=== PATIENT | female | born 1960 | race Caucasian/White ===

== ENCOUNTER → 2016-05-02 | Outpatient (CLI) | payer OTHER ==
--- NOTE | 2016-05-02 16:37 | MAMMOGRAPHY REPORT ---
BILATERAL DIGITAL SCREENING MAMMOGRAM TOMOSYNTHESIS WITH CAD: 05/02/2016 CLINICAL HISTORY: Routine screening examination. TECHNIQUE: Breast tomosynthesis in addition to standard 2D mammography was performed. Current study was also evaluated with a Computer Aided Detection (CAD) system. COMPARISON: Comparison is made to exam dated: 04/09/2015 mammogram - [facility]. BREAST COMPOSITION: There are scattered areas of fibroglandular density in both breasts. FINDINGS: No suspicious mass, architectural distortion or cluster of microcalcifications is seen. IMPRESSION: ACR BI-RADS CATEGORY 1: NEGATIVE There is no mammographic evidence of malignancy. A 1 year screening mammogram is recommended. The p atient will receive written notification of the results. Approximately 10% of breast cancers are not detected with mammography. A negative mammographic repor t should not delay biopsy if a clinically suggestive mass is present. Jana navarrete/rabia:05/02/2016 15:50:58 Chief Wellness Officer: Barbara SANTOS(Lorelei)(Brisa), [facility] letter sent: Normal 1/2 BI-RADS Code: ACR BI-RADS Category 1: Negative
== END | disposition home or self-care (01) ==
LOC: C.MAMM 09:13
PROVIDERS: ATTEND Obstetrics & Gynecology
DX: Z12.31 Encounter for screening mammogram for malignant neoplasm of breast (principal)

== ENCOUNTER → 2017-05-03 | Outpatient (CLI) | payer OTHER ==
--- NOTE | 2017-05-04 15:06 | MAMMOGRAPHY REPORT ---
BILATERAL DIGITAL SCREENING MAMMOGRAM TOMOSYNTHESIS WITH CAD: 05/03/2017 CLINICAL HISTORY: Routine screening. Patient has no complaints. TECHNIQUE: Breast tomosynthesis in addition to standard 2D mammography was performed. Current study was also evaluated with a Computer Aided Detection (CAD) system. COMPARISON: Comparison is made to exams dated: 05/02/2016 mammogram and 04/09/2015 mammogram - [facility]. BREAST COMPOSITION: There are scattered areas of fibroglandular density in both breasts. FINDINGS: There is a lobulated 7 mm mass within the right upper inner quadrant, best seen on the stacie synthesis images, for which ultrasound and possible additional spot compression views are recommended for further evaluation. The remainder of both breasts are stable compared to prior exams, without s uspicious masses, calcifications, or areas of architectural distortion noted. IMPRESSION: ACR BI-RADS CATEGORY 0: INCOMPLETE EVALUATION: NEED ADDITIONAL IMAGING EVALUATION Right breast mass, for which additional imaging evaluation is recommended. The patient will be mcdermott d to schedule an appointment. Approximately 10% of breast cancers are not detected with mammography. A negative mammographic report should not delay biopsy if a clinically suggestive mass is present. Najma Quan M.D. ah/:05/03/2017 16:24:59 Cake Former: Barbara SANTOS(Lorelei)(Brisa), [facility] letter sent: Addl Imaging 0 BI-RADS Code: ACR BI-RADS Category 0: Incomplete Evaluation: Need Additional Imaging Evaluation
== END | disposition home or self-care (01) ==
LOC: C.MAMM 09:16
PROVIDERS: ATTEND Obstetrics & Gynecology
DX: Z12.31 Encounter for screening mammogram for malignant neoplasm of breast (principal); N63.12 Unspecified lump in the right breast, upper inner quadrant

== ENCOUNTER → 2017-05-09 | Outpatient (CLI) | payer OTHER ==
--- NOTE | 2017-05-09 15:10 | MAMMOGRAPHY REPORT ---
UNILATERAL RIGHT DIGITAL DIAGNOSTIC MAMMOGRAM TOMOSYNTHESIS AND TARGETED RIGHT ULTRASOUND: 05/09/2017 CLINICAL HISTORY: Callback from screening mammogram for right breast mass. TECHNIQUE: Breast tomosynthesis in addition to standard 2D mammography was performed. Spot compress ion right CC and MLO 2-D and tomosynthesis images were obtained. COMPARISON: Comparison is made to exams dated: 05/03/2017 mammogram, 05/02/2016 mammogram, and 015 mammogram - [facility]. BREAST COMPOSITION: There are scattered areas of fibroglandular density in the right breast. FINDINGS: Spot compression views demonstrate a persistent low-density lobulated circumscribed 7 mm m ass within the right upper inner quadrant at approximately 1:00, best seen on the tomosynthesis image s. When compared to prior exams, the mass does not appear significantly changed in size on the MLO t omosynthesis images from the 2017 exam, however, it was not clearly seen on exams prior to 2017 altho ugh it is difficult to make an accurate comparison as these older priors were only 2-D images. Targeted ultrasound was performed of the right upper inner quadrant of the region of the mammographic mass. Sonographically normal tissue is seen in this region, without evidence of a mass or other kadi picious sonographic abnormality evident. No clear sonographic correlate for the mammographic mass is seen. IMPRESSION: ACR-BI-RADS CATEGORY 3: PROBABLY BENIGN, TARGETED ULTRASOUND ACR-BI-RADS CATEGORY 3: PRO BABLY BENIGN Low-density circumscribed 7 mm mass in the right upper inner quadrant mammographically, with no clear sonographic correlate evident. The mass is probably benign and may represent an intramammary lymph node or sonographically occult cyst. Recommend follow-up diagnostic tomosynthesis mammograms and pos sible ultrasound of the right breast in 6 months to reevaluate. The patient has been verbally notified of the results. Approximately 10% of breast cancers are not detected with mammography. A negative mammographic report should not delay biopsy if a clinically suggestive mass is present. Najma Quan M.D. /:05/09/2017 13:17:19 Robotic Weld Technician: Carlos ALVARENGA)(Brisa), [facility] letter sent: Follow Up Recommended 3 BI-RADS Code: ACR-BI-RADS Category 3: Probably Benign Ultrasound BI-RADS: ACR-BI-RADS Category 3: Pr obably Benign
== END | disposition home or self-care (01) ==
LOC: C.MAMM 12:30
PROVIDERS: ATTEND Obstetrics & Gynecology
DX: N63.12 Unspecified lump in the right breast, upper inner quadrant (principal)

== ENCOUNTER → 2017-11-08 | Outpatient (CLI) | payer OTHER ==
--- NOTE | 2017-11-08 16:06 | MAMMOGRAPHY REPORT ---
UNILATERAL RIGHT DIGITAL DIAGNOSTIC MAMMOGRAM TOMOSYNTHESIS WITH CAD AND TARGETED RIGHT ULTRASOUND: CLINICAL HISTORY: Six-month follow-up of right breast mass. TECHNIQUE: The study was acquired using full field digital technology and interpreted from soft copy. Breast tomosynthesis in addition to standard 2D mammography was performed. Current study was also ev aluated with a Computer Aided Detection (CAD) system. Right CC and MLO 2D and tomosynthesis images w ere obtained. COMPARISON: Comparison is made to exams dated: 05/09/2017 mammogram, 05/03/2017 mammogram, 05/02/2016 m ammogram, 04/09/2015 mammogram, and 05/09/2017 ultrasound - [facility]. BREAST COMPOSITION: There are scattered areas of fibroglandular density in right breast. FINDINGS: Again noted is a low-density lobulated 8 mm mass within the right superior breast at approximately 12 :00, best seen on the tomosynthesis images. The mass does not appear significantly changed when acco unting for slight differences in positioning compared to the April 2017 exam. Targeted ultrasound was performed of the right 12 to 1:00 breast in the region of the mammographic ma ss. Sonographically normal tissue is seen in this region, without evidence of a mass or other suspic ious sonographic abnormality. No clear sonographic correlate for the mammographic masses seen. IMPRESSION: ACR-BI-RADS CATEGORY 3: PROBABLY BENIGN, ULTRASOUND ACR-BI-RADS CATEGORY 3: PROBABLY HAILEE GN Low-density 8 mm mass in the right 12:00 breast is stable mammographically compared to the May 12 exam. No clear sonographic correlate is evident. The mass is probably benign and may represent a sonographically occult cyst or other benign mass. Recommend bilateral diagnostic tomosynthesis mamm ograms in 6 months, to reevaluate the right breast mass and for routine mammography of the left breas t. (05/10/2018) The patient has been verbally notified of the results. Some breast cancers are not detected with mammography. A negative mammographic report should not gabriel y biopsy if a clinically suggestive mass is present. Najma Quan M.D. ah/:11/08/2017 10:33:46 Plodding Operator: RT Janie(R)(M), [facility] letter sent: Follow Up Recommended 3 OVERALL STUDY BIRADS: 3 Probably benign
== END | disposition home or self-care (01) ==
LOC: C.MAMM 09:45
PROVIDERS: ATTEND Obstetrics & Gynecology
DX: Z09 Encounter for follow-up examination after completed treatment for conditions other than malignant neoplasm (principal); N63.10 Unspecified lump in the right breast, unspecified quadrant